=== PATIENT | male | born 1955 | race Caucasian/White ===

== ENCOUNTER 2019-03-21 05:48 | Outpatient (RCR) | payer OTHER, SELFPAY ==
--- NOTE | 2019-02-26 | CT_ITS ---
Radation Therapy Planning CT images; total exam DLP: 1150.40 mGy-cm MTDD
--- NOTE | 2019-03-07 13:02 | ONCRAD TMN_ITS ---
Radiation Oncology Weekly Treatment Management Patient: Ren Salamanca MR#: [id number] : 1955> Age: 63> Sex: Male Dictated by: Dr. Jevon Camarillo Date of Service: 03/05/2019 Referring Physician(s) : Primary Diagnosis: C61 - Malignant neoplasm of prostate, Diagnosed 05/07/2018 (Active) Radiotherapy to date: Course: Prostate 2019, Treatment Site: Prostate 45Gy, Ref. ID: [id number], Energy: 15X/6X, Dose/Fx (cGy): 180, #Fx: , Dose Correction (cGy): 0, Total Dose (cGy): 180, Start Date: 03/05/2019, Elapsed Days: 0 Current Complaints/Interval History: Constitutional Complains of moderate fatigue. Complains of night sweats along with hot flashes. Denies lack of appetite and fever. Gastrointestinal Denies constipation and diarrhea. No rectal bleeding or irritation Genitourinary (M) Complains of nocturia gets up about 3 to 5 times per night. Denies dysuria, frequency and urgency. Current Medications: AmLODIPine Besylate, aspirin, atorvastatin Calcium, chlorthalidone, clopidogrel Bisulfate, escitalopram Oxalate, lantus, losartan Potassium, metoprolol Succinate ER, novoLOG, pantoprazole Sodium, stool Softener, tamsulosin HCl. Allergies: Welchol, Szxgjok-Vxmkg-Exzlgnw-Varicell, Omeprazole and Rosuvastatin Calcium. Vital Signs: Performed on 03/05/2019 11:05 AM BMI - 33.375 kg/m2 (high), Height - 69.00 in, Weight - 226.0 lbs, Temperature - 97.3 f, Pulse - 72, Respiration - 18, O2 Sat - 97 %, Pain - 5 and BP - 113/ 68 mm(hg). Physical Exam: Appears stable, no skin erythema or desquamation. Performance Status: 0 - Fully active, able to carry on all predisease activities without restrictions. (ECOG) Lab: None pending in Radiation Oncology. Imaging: No new diagnostic imaging was performed since the last weekly treatment visit. All radiation therapy related imaging (including but not limited to CBCT generated images) was reviewed. Appropriate changes, if any, were made to assure accurate target localization. Impression/Plan: Started RT today. Doing well. Continue treatment as planned. CPT: 95201 Signed by: Dr. Jevon Camarillo>03/07/2019 1:00:30 PM <<Signature on File>>
--- NOTE | 2019-03-11 17:49 | ONCRAD TMN_ITS ---
Radiation Oncology Weekly Treatment Management Patient: Ren Salamanca MR#: [id number] : 1955> Age: 63> Sex: Male Dictated by: Dr. Jevon Camarillo Date of Service: 03/11/2019 Referring Physician(s) : Primary Diagnosis: C61 - Malignant neoplasm of prostate, Diagnosed 05/07/2018 (Active) Radiotherapy to date: Course: 2019 Treatment Site: Prostate 45Gy, Ref. ID: [id number], Energy: 15X/6X, Dose/Fx (cGy): 180, Fx: , Dose Correction (cGy): 0, Total Dose (cGy): 900, Start Date: 03/05/2019, End Date: 03/11/2019, Elapsed Days: 6 Current Complaints/Interval History: Constitutional Complains of mild fatigue. Complains of night sweats. Denies lack of appetite and fever. Gastrointestinal Complains of occasional constipation. Denies diarrhea. No rectal bleeding or irritation Genitourinary (M) Complains of nocturia gets up frequently. Denies dysuria, frequency and urgency. Current Medications: AmLODIPine Besylate, aspirin, atorvastatin Calcium, chlorthalidone, clopidogrel Bisulfate, escitalopram Oxalate, lantus, losartan Potassium, metoprolol Succinate ER, novoLOG, pantoprazole Sodium, stool Softener, tamsulosin HCl. Allergies: Welchol, Iuldkjp-Eltcc-Ustrxxc-Varicell, Omeprazole and Rosuvastatin Calcium. Vital Signs: Performed on 03/11/2019 3:02 PM BMI - 34.704 kg/m2 (high), Height - 69.00 in, Weight - 235.0 lbs, Temperature - 97.4 f, Pulse - 65, Respiration - 18, O2 Sat - 96 %, Pain - 0 and BP - 111/ 59 mm(hg)(/low). Physical Exam: Appears stable, no skin erythema or desquamation. Performance Status: 0 - Fully active, able to carry on all predisease activities without restrictions. (ECOG) Lab: None pending in Radiation Oncology. Imaging: No new diagnostic imaging was performed since the last weekly treatment visit. All radiation therapy related imaging (including but not limited to CBCT generated images) was reviewed. Appropriate changes, if any, were made to assure accurate target localization. Impression/Plan: Tolerating treatment well. Continue treatment as planned. CPT: 61954 Signed by: Dr. Jevon Camarillo>03/11/2019 5:47:23 PM <<Signature on File>>
--- NOTE | 2019-03-19 12:55 | ONCRAD TMN_ITS ---
Radiation Oncology Weekly Treatment Management Patient: Ren Salamanca MR#: [id number] : 1955 Age: 63 Sex: Male Dictated by: Dr. Jevon Camarillo Date of Service: 03/19/2019 Referring Physician(s) : Primary Diagnosis: C61 - Malignant neoplasm of prostate, Diagnosed 05/07/2018 (Active) Radiotherapy to date: Course: Prostate 2019, Treatment Site: Prostate 45Gy, Ref. ID: [id number], Energy: 15X/6X, Dose/Fx (cGy): 180, #Fx: , Dose Correction (cGy): 0, Total Dose (cGy): 1,980, Start Date: 03/05/2019, Elapsed Days: 14 Current Complaints/Interval History: Constitutional Complains of moderate fatigue and occasional night sweats. Denies lack of appetite and fever. Gastrointestinal Denies constipation and diarrhea. Has history of hemorrhoids and had rectal bleeding yesterday. No rectal irritation Genitourinary (M) Complains of nocturia gets up about 3 to 4 times per night. Denies dysuria, frequency and urgency. Current Medications: AmLODIPine Besylate, aspirin, atorvastatin Calcium, chlorthalidone, clopidogrel Bisulfate, escitalopram Oxalate, lantus, losartan Potassium, metoprolol Succinate ER, novoLOG, pantoprazole Sodium, stool Softener, tamsulosin HCl. Allergies: Welchol, Zfnefty-Huddn-Ivzqvse-Varicell, Omeprazole and Rosuvastatin Calcium. Vital Signs: Performed on 03/19/2019 10:48 AM BMI - 34.733 kg/m2 (high), Height - 69.00 in, Weight - 235.2 lbs, Temperature - 97.4 f, Pulse - 68, Respiration - 18, O2 Sat - 96 %, Pain - 0 and BP - 140/ 68 mm(hg). Physical Exam: Appears stable, no skin erythema or desquamation. Performance Status: 0 - Fully active, able to carry on all predisease activities without restrictions. (ECOG) Lab: None pending in Radiation Oncology. Imaging: No new diagnostic imaging was performed since the last weekly treatment visit. All radiation therapy related imaging (including but not limited to CBCT generated images) was reviewed. Appropriate changes, if any, were made to assure accurate target localization. Impression/Plan: Tolerating treatment well with expected side effects. Continue treatment as planned. Preparation H for hemorrhoid flareup. CPT: 20979 Signed by: Dr. Jevon Camarillo>03/19/2019 12:54:37 PM <<Signature on File>>
== END 2019-03-21 23:59 | disposition home or self-care (01) ==
LOC: ONCMED 05:48
PROVIDERS: Family Provider Internal Medicine; PCP Internal Medicine; Visit Provider Radiology Radiation Oncology
DX: Z51.0 Encounter for antineoplastic radiation therapy (principal); C61 Malignant neoplasm of prostate; Z79.818 Long term (current) use of other agents affecting estrogen receptors and estrogen levels
CPT/HCPCS: 77263; 77280; 77290; 77300; 77301; 77334; 77336; 77338; 77385; 77427; Q9967

== ENCOUNTER 2019-04-18 05:43 | Outpatient (RCR) | payer OTHER, SELFPAY ==
--- NOTE | 2019-03-25 11:58 | ONCRAD TMN_ITS ---
Radiation Oncology Weekly Treatment Management Patient: Ren Salamanca MR#: [id number] : 1955> Age: 63> Sex: Male Dictated by: Dr. Jevon Camarillo Date of Service: 03/25/2019 Referring Physician(s) : Primary Diagnosis: C61 - Malignant neoplasm of prostate, Diagnosed 05/07/2018 (Active) Radiotherapy to date: Course: Prostate 2019, Treatment Site: Prostate 45Gy, Ref. ID: [id number], Energy: 15X/6X, Dose/Fx (cGy): 180, #Fx: , Dose Correction (cGy): 0, Total Dose (cGy): 2,700, Start Date: 03/05/2019, Elapsed Days: 20 Current Complaints/Interval History: Constitutional Complains of moderate fatigue. Complains of night sweats which occur occasionally. Denies lack of appetite and fever. Gastrointestinal Complains of constipation. Denies diarrhea. Has rectal bleeding anal irritation related to hemorrhoids Genitourinary (M) Complains of nocturia has to get up 5 to 6 times per night and urgency occasionally. Denies dysuria and frequency. Current Medications: AmLODIPine Besylate, aspirin, atorvastatin Calcium, chlorthalidone, clopidogrel Bisulfate, escitalopram Oxalate, lantus, losartan Potassium, metoprolol Succinate ER, novoLOG, pantoprazole Sodium, stool Softener, tamsulosin HCl. Allergies: Welchol, Wvllxby-Cihhq-Pzgsezf-Varicell, Omeprazole and Rosuvastatin Calcium. Vital Signs: Performed on 03/25/2019 10:47 AM BMI - 34.733 kg/m2 (high), Height - 69.00 in, Weight - 235.2 lbs, Temperature - 97.3 f, Pulse - 81, Respiration - 20, O2 Sat - 96 %, Pain - 0 and BP - 147/ 67 mm(hg)(high/). Physical Exam: Appears stable, no skin erythema or desquamation. Performance Status: 0 - Fully active, able to carry on all predisease activities without restrictions. (ECOG) Lab: None pending in Radiation Oncology. Imaging: No new diagnostic imaging was performed since the last weekly treatment visit. All radiation therapy related imaging (including but not limited to CBCT generated images) was reviewed. Appropriate changes, if any, were made to assure accurate target localization. Impression/Plan: Tolerating treatment well with expected side effects. Continue treatment as planned. Continue preparation H ointment for hemorrhoid flareup CPT: 78492 Signed by: Dr. Jevon Camarillo>03/25/2019 11:56:24 AM <<Signature on File>>
--- NOTE | 2019-04-01 11:59 | ONCRAD TMN_ITS ---
Radiation Oncology Weekly Treatment Management Patient: Ren Salamanca MR#: [id number] : 1955> Age: 63> Sex: Male Dictated by: Dr. Jevon Camarillo Date of Service: 04/01/2019 Referring Physician(s) : Primary Diagnosis: C61 - Malignant neoplasm of prostate, Diagnosed 05/07/2018 (Active) Radiotherapy to date: Course: Prostate 2019, Treatment Site: Prostate 45Gy, Ref. ID: [id number], Energy: 15X/6X, Dose/Fx (cGy): 180, #Fx: 20 / , Dose Correction (cGy): 0, Total Dose (cGy): 3,600, Start Date: 03/05/2019, Elapsed Days: 27 Current Complaints/Interval History: Constitutional Complains of moderate fatigue. Denies lack of appetite, fever, night sweats and change in weight. Gastrointestinal Complains of intermittent constipation. Denies diarrhea. No rectal bleeding or irritation Genitourinary (M) Complains of nocturia gets up about 3 to 4 times per night. Denies dysuria, frequency and urgency. Current Medications: AmLODIPine Besylate, aspirin, atorvastatin Calcium, chlorthalidone, clopidogrel Bisulfate, escitalopram Oxalate, lantus, losartan Potassium, metoprolol Succinate ER, novoLOG, pantoprazole Sodium, stool Softener, tamsulosin HCl. Allergies: Welchol, Nggdadv-Aaebk-Jjowxsw-Varicell, Omeprazole and Rosuvastatin Calcium. Vital Signs: Performed on 04/01/2019 10:48 AM BMI - 34.704 kg/m2 (high), Height - 69.00 in, Weight - 235.0 lbs, Temperature - 97.5 f, Pulse - 70, Respiration - 18, O2 Sat - 96 %, Pain - 0 and BP - 154/ 84 mm(hg)(high/). Physical Exam: Appears stable, no skin erythema or desquamation. Performance Status: 1 - No physically strenuous activity, but ambulatory and able to carry out light or sedentary work (e.g. office work, light house work). (ECOG) Lab: None pending in Radiation Oncology. Imaging: No new diagnostic imaging was performed since the last weekly treatment visit. All radiation therapy related imaging (including but not limited to CBCT generated images) was reviewed. Appropriate changes, if any, were made to assure accurate target localization. Impression/Plan: Tolerating treatment well with expected side effects. Continue treatment as planned. CPT: 01007 Signed by: Dr. Jevon Camarillo>04/01/2019 11:58:38 AM <<Signature on File>>
--- NOTE | 2019-04-08 11:04 | ONCRAD TMN_ITS ---
Radiation Oncology Weekly Treatment Management Patient: Ren Salamanca MR#: [id number] : 1955> Age: 63> Sex: Male Dictated by: Dr. Jevon Camarillo Date of Service: 04/08/2019 Referring Physician(s) : Primary Diagnosis: C61 - Malignant neoplasm of prostate, Diagnosed 05/07/2018 (Active) Radiotherapy to date: Course: Prostate 2019, Treatment Site: Prostate 45Gy, Ref. ID: [id number], Energy: 15X/6X, Dose/Fx (cGy): 180, #Fx: , Dose Correction (cGy): 0, Total Dose (cGy): 4,140, Start Date: 03/05/2019, Elapsed Days: 34 Current Complaints/Interval History: Constitutional Complains of moderate fatigue. Denies lack of appetite and night sweats. Gastrointestinal Complains of intermittent constipation. Denies diarrhea. No rectal bleeding or irritation Genitourinary (M) Complains of occasional mild dysuria and nocturia gets up about 2 to 3 times per night. Denies frequency and urgency. Current Medications: AmLODIPine Besylate, aspirin, atorvastatin Calcium, chlorthalidone, clopidogrel Bisulfate, escitalopram Oxalate, lantus, losartan Potassium, metoprolol Succinate ER, novoLOG, pantoprazole Sodium, stool Softener, tamsulosin HCl. Allergies: Welchol, Fzafjej-Aacqk-Klamofa-Varicell, Omeprazole and Rosuvastatin Calcium. Vital Signs: Performed on 04/08/2019 10:46 AM BMI - 34.763 kg/m2 (high), Height - 69.00 in, Weight - 235.4 lbs, Temperature - 97.2 f, Pulse - 65, Respiration - 18, O2 Sat - 98 %, Pain - 0 and BP - 135/ 71 mm(hg). Physical Exam: Appears stable, no skin erythema or desquamation. Performance Status: 1 - No physically strenuous activity, but ambulatory and able to carry out light or sedentary work (e.g. office work, light house work). (ECOG) Lab: None pending in Radiation Oncology. Imaging: No new diagnostic imaging was performed since the last weekly treatment visit. All radiation therapy related imaging (including but not limited to CBCT generated images) was reviewed. Appropriate changes, if any, were made to assure accurate target localization. Impression/Plan: Tolerating treatment well with expected side effects. Continue treatment as planned. CPT: 22936 Signed by: Dr. Jevon Camarillo>04/08/2019 11:03:04 AM <<Signature on File>>
--- NOTE | 2019-04-16 11:22 | ONCRAD TMN_ITS ---
Radiation Oncology Weekly Treatment Management Patient: Ren Salamanca MR#: [id number] : 1955> Age: 63> Sex: Male Dictated by: Dr. Jevon Camarillo Date of Service: 04/16/2019 Referring Physician(s) : Primary Diagnosis: C61 - Malignant neoplasm of prostate, Diagnosed 05/07/2018 (Active) Radiotherapy to date: Course: Prostate 2019, Treatment Site: Prostate 45Gy, Ref. ID: [id number], Energy: 15X/6X, Dose/Fx (cGy): 180, #Fx: 25 / 25, Dose Correction (cGy): 0, Total Dose (cGy): 4,500, Start Date: 03/05/2019, End Date: 04/10/2019, Elapsed Days: 36 Prostate 2019, Treatment Site: Prostate 55Gy, Ref. ID: [id number], Energy: 15X/6X, Dose/Fx (cGy): 200, #Fx: 4 / 5, Dose Correction (cGy): 0, Total Dose (cGy): 800, Start Date: 04/11/2019, Elapsed Days: 5 Current Complaints/Interval History: Constitutional Complains of moderate fatigue. Denies lack of appetite, fever and night sweats. Gastrointestinal Denies constipation and diarrhea. Has no rectal bleeding but has anal irritation Genitourinary (M) Complains of dysuria and has a hard time starting the urine flow and has a weak urinary stream. Complains of nocturia more than 4 times/night. Denies frequency and urgency. Current Medications: AmLODIPine Besylate, aspirin, atorvastatin Calcium, chlorthalidone, clopidogrel Bisulfate, escitalopram Oxalate, lantus, losartan Potassium, metoprolol Succinate ER, novoLOG, pantoprazole Sodium, stool Softener, tamsulosin HCl. Allergies: Welchol, Imesccd-Vzfdn-Tqcrdlr-Varicell, Omeprazole and Rosuvastatin Calcium. Vital Signs: Performed on 04/16/2019 10:31 AM BMI - 34.32 kg/m2 (high), Height - 69.00 in, Weight - 232.4 lbs, Temperature - 96.9 f, Pulse - 68, Respiration - 18, O2 Sat - 99 %, Pain - 0 and BP - 152/ 71 mm(hg)(high/). Physical Exam: Appears stable, no skin erythema or desquamation. Performance Status: 1 - No physically strenuous activity, but ambulatory and able to carry out light or sedentary work (e.g. office work, light house work). (ECOG) Lab: None pending in Radiation Oncology. Imaging: No new diagnostic imaging was performed since the last weekly treatment visit. All radiation therapy related imaging (including but not limited to CBCT generated images) was reviewed. Appropriate changes, if any, were made to assure accurate target localization. Impression/Plan: Tolerating treatment well with expected side effects. Continue treatment as planned. Continue tamsulosin. Recommended preparation H for anal irritation. CPT: 73261 Signed by: Dr. Jevon Camarillo>04/16/2019 11:21:24 AM <<Signature on File>>
== END 2019-04-19 23:59 | disposition home or self-care (01) ==
LOC: ONCMED 05:43
PROVIDERS: Family Provider Internal Medicine; PCP Internal Medicine; Visit Provider Radiology Radiation Oncology
DX: Z51.0 Encounter for antineoplastic radiation therapy (principal); C61 Malignant neoplasm of prostate; K62.89 Other specified diseases of anus and rectum
CPT/HCPCS: 77280; 77300; 77336; 77338; 77385; 77412

== ENCOUNTER 2019-05-05 15:43 | Emergency (ER) | payer OTHER, SELFPAY ==
[2019-05-05 16:10] VITALS: BP 144/66; PULSE 73; RESP 16; TEMP 36.9; O2SAT 95; BMI 33.5
--- NOTE | 2019-05-05 16:23 | XR_ITS ---
WS: [id number] XR chest 1V portable [id number] REASON FOR EXAM: cough/congestion FINDINGS: Slight increased peribronchial markings bilaterally no definite pneumonia. Lung roach are mildly hyper aerated. There is arteriosclerotic changes. XR/XR chest 1V portable [id number] IMPRESSION: Findings consistent with bronchitis.
[2019-05-05 17:27] LABS: Basophils % 0.7 %; Eosinophils # 0.5 10^3/uL (0.0-0.8); Eosinophils % 11.1 %; Hemoglobin 10.9 g/dL (11.7-16.6); Lymphocytes # 0.5 10^3/uL (0.8-4.8); Lymphocytes % 11.1 %; Mean Corpuscular HGB Conc 35.2 g/dL (30.0-36.0); Mean Corpuscular Hemoglobin 31.6 pg (28.0-34.0); Mean Corpuscular Volume 89.9 fL (80-94); Monocytes # 0.4 10^3/uL (0.2-0.9); Monocytes % 8.5 %; Neutrophils # 3.1 10^3/uL (1.8-7.7); Neutrophils % 68.6 %; Nucleated Red Blood Cells % 0 %; Platelet Count 134 10^3/cmm (130-400); Red Blood Count 3.45 10^6/uL (4.1-5.3); Red Cell Distribution Width 12.8 % (12.1-15.1); White Blood Count 4.5 10^3/uL (4.0-10.0)
[2019-05-05 17:43] LABS: Alanine Aminotransferase 25 U/L (0-41); Albumin Level 4.3 g/dL (3.5-5.2); Alkaline Phosphatase 78 IU/L (40-130); Anion Gap 14.3 (5-19); Aspartate Amino Transferase 19 U/L (0-40); Blood Urea Nitrogen 28 mg/dL (8-23); Calcium 10.6 mg/dL (8.5-10.5); Carbon Dioxide 31 mmol/L (22-29); Chloride 96 mmol/L (98-107); Glomerular Filtration Rate 47.4 mL/min (90-130); Glucose 254 mg/dL (65-115); Osmolality Calculated 290 mOsm/kg (285-295); Potassium 4.3 mmol/L (3.5-5.1); Sodium 137 mmol/L (136-145); Total Bilirubin 0.3 mg/dL (0.15-1.2); Total Protein 7.3 g/dL (6.6-8.7)
--- NOTE | 2019-05-05 18:04 | ED_ITS ---
Entered by Indu Fajardo, acting as scribe for Zhao Fajardo DO May 05, 2019 15:43 HPI - SOB/Dyspnea General: Chief Complaint: Shortness of Breath/Dyspnea Stated Complaint: SOB Time Seen by Provider: 05/05/19 18:31 Source: patient and family Mode of arrival: ambulatory Limitations: no limitations History of Present Illness: HPI Narrative: 63 yo male presents with increased shortness of breath. pt states this started 1 week ago. pt states he is a cancer pt and was concerned about respiratory issues. pt states he was seen at pcp clinic and they gave him antibiotics and inhaler. pt states he was [facility] ED [facility]. MD elicited complaint: shortness of breath Onset (ago): week(s) (1 week) Context: recent illness Timing: constant Severity: mild Exacerbating factors: deep breaths Relieving factors: nothing Associated symptoms: Deny abdominal pain, chest pain, fever(s), nausea or vomiting Treatment prior to arrival: other (antibotics, inhaler) Related Data: Home oxygen amount: none Review of Systems Const: Denies: fever, chills, body aches, change in appetite, fatigue or malaise ENMT: Denies: throat pain, ear pain, nasal discharge or nasal congestion Card: Denies: chest pain or edema GI: Denies: abdominal pain, nausea, vomiting, vomiting blood, coffee grounds in vomit, diarrhea, constipation, bloating, blood in stool or black tarry stool : Denies: flank pain, painful urination, urinary frequency or urinary urgency Skin/Breast: Denies: rash or itching PFS ED PFSH: Medical History (Updated 05/05/19 @ 19:47 by Zhao Fajardo DO) History of prostate cancer Social History Smoking and tobacco status: former smoker Physical Exam Const: COMMON NORMALS: no apparent distress GENERAL APPEARANCE: cooperative and comfortable ORIENTATION/CONSCIOUSNESS: Yes awake, Yes oriented to person, Yes oriented to place and Yes oriented to time HENMT: COMMON NORMALS: normocephalic, head/scalp atraumatic, hearing grossly normal bilaterally, external ears normal, EAC's normal, TM's normal bilaterally, nasal mucous membranes and turbinates normal, moist oral mucous membranes and oropharynx normal HEAD & SCALP: normocephalic and atraumatic NOSE: nasal mucous membranes and turbinates normal EXTERNAL EAR: Yes external ears normal EXTERNAL AUDITORY CANAL: EAC's normal TYMPANIC MEMBRANE: TM's normal bilaterally Eye: COMMON NORMALS: PERRL, EOMs intact bilaterally, conjunctivae normal and no scleral icterus CONJUNCTIVA: Yes conjunctivae normal PUPIL: Yes PERRL Neck/C-Spine: COMMON NORMALS: full ROM, no lymphadenopathy, supple and no JVD Lymph: LYMPHATIC: no lymphadenopathy noted and no lymphedema noted Resp: COMMON NORMALS: normal respiratory effort, no retractions, no use of accessory muscles and clear to auscultation bilaterally AUSCULTATION: clear to auscultation bilaterally Cardio: COMMON NORMALS: no JVD, regular rate, regular rhythm and no murmurs RATE: regular rate RHYTHM: regular rhythm GI: COMMON NORMALS: soft to palpation and no hepatosplenomegaly AUSCULTATION: Yes normoactive bowel sounds PALPATION: Yes soft, No tender, No guarding and Yes no hepatosplenomegaly Extremity: COMMON NORMALS: normal to inspection, normal capillary refill, no clubbing, cyanosis or edema, no calf tenderness and no pedal edema Neuro: SENSORIUM/ORIENTATION: Yes oriented to person, Yes oriented to place and Yes oriented to time Skin: COMMON NORMALS: no rashes or lesions noted GENERAL SKIN EXAM: no rashes or lesions noted Course ED course: White count normal flu swabs are normal chest x-ray shows no acute infiltrates. We will go ahead and treat him with a Medrol Dosepak have him use duo nebs instead of plain albuterol follow-up with his primary care doctor return if worsens or changes Vital Signs: Vital signs: Vital Signs Temperature 98.5 F 05/05/19 16:10 Pulse Rate 75 05/05/19 20:33 Respiratory Rate 18 05/05/19 20:33 Blood Pressure 169/82 05/05/19 20:33 Pulse Oximetry 95 05/05/19 20:33 MDM - SOB/Dyspnea Lab Data: Labs: Lab Results 05/05/19 05/05/19 05/05/19 Range/Units 17:10 17:10 18:21 WBC 4.5 (4.0-10.0) 10^3/ uL RBC 3.45 L (4.1-5.3) 10^6/u L Hgb 10.9 L (11.7-16.6) g/dL Hct 31.0 L (42.0-52.0) % MCV 89.9 (80-94) fL MCH 31.6 (28.0-34.0) pg MCHC 35.2 (30.0-36.0) g/dL RDW 12.8 (12.1-15.1) % Plt Count 134 (130-400) 10^3/c mm MPV 12.0 H (7.4-10.4) fL Neut % (Auto) 68.6 % Lymph % (Auto) 11.1 % [place] % (Auto) 8.5 % Eos % (Auto) 11.1 % Baso % (Auto) 0.7 % Neut # (Auto) 3.1 (1.8-7.7) 10^3/u L Lymph # (Auto) 0.5 L (0.8-4.8) 10^3/u L [place] # (Auto) 0.4 (0.2-0.9) 10^3/u L Eos # (Auto) 0.5 (0.0-0.8) 10^3/u L Baso # (Auto) 0.0 (0.0-0.1) 10^3/u L Nucleated RBC % (a uto) 0 % Nucleated RBCs # 0.0 /100WBC Sodium 137 (136-145) mmol/L Potassium 4.3 (3.5-5.1) mmol/L Chloride 96 L (98-107) mmol/L Carbon Dioxide 31 H (22-29) mmol/L Anion Gap 14.3 (5-19) BUN 28 H (8-23) mg/dL Creatinine 1.5 H (0.7-1.2) mg/dL GFR Calculation 47.4 L (90-130) mL/min Glucose 254 H (65-115) mg/dL Calculated Osmolal ity 290 (285-295) mOsm/k g Calcium 10.6 H (8.5-10.5) mg/dL Total Bilirubin 0.3 (0.15-1.2) mg/dL AST 19 (0-40) U/L ALT 25 (0-41) U/L Alkaline Phosphata se 78 (40-130) IU/L Total Protein 7.3 (6.6-8.7) g/dL Albumin 4.3 (3.5-5.2) g/dL Globulin 3.0 (1.3-4.6) g/dL Influenza Type A A g Negative (Negative) POC Influenza B Ag Negative (Negative) Discharge Plan Discharge Patient Disposition: Home, Self-Care Clinical Impression: Acute exacerbation of chronic obstructive airways disease Condition: Stable Prescriptions: New Medrol (Darío) 4 mg tablets,dose pack See Rx Instructions .ROUTE .COMPLEX Qty: 21 RF: 0 ipratropium-albuterol 0.5 mg-3 mg(2.5 mg base)/3 mL solution for nebulization 3 ml INHALATION Q6H PRN (Reason: shortness of breath or wheezing) Qty: 180 RF: 0 No Action atorvastatin 40 mg Tablet 40 mg PO DAILY RF: 0 metoprolol succinate 50 mg Tablet Extended Release 24 Hr 50 mg PO DAILY RF: 0 Plavix 75 mg Tablet 75 mg PO DAILY RF: 0 chlorthalidone 50 mg Tablet 50 mg PO DAILY RF: 0 Aspir-81 81 mg Tablet,Delayed Release (Dr/Ec) 81 mg PO DAILY RF: 0 tamsulosin 0.4 mg Capsule 0.4 mg PO DAILY RF: 0 amlodipine 10 mg Tablet 10 mg PO DAILY RF: 0 Novolog U-100 Insulin aspart 100 unit/mL Solution 15 unit SUBCUT TID RF: 0 pantoprazole 40 mg tablet,delayed release (DR/EC) 40 mg PO BID RF: 0 ranitidine HCl 150 mg Tablet 150 mg PO BID RF: 0 ProAir HFA 90 mcg/actuation Hfa Aerosol Inhaler 1 inh INHALATION QID PRN (Reason: Shortness Of Breath) RF: 0 losartan 100 mg Tablet 100 mg PO DAILY RF: 0 escitalopram oxalate 20 mg Tablet See Rx Instructions .ROUTE .COMPLEX RF: 0 Symbicort 80-4.5 mcg/actuation HFA aerosol inhaler 2 puff INHALATION BID RF: 0 omeprazole 20 mg Tablet,Delayed Release (Dr/Ec) 20 mg PO DAILY RF: 0 Lantus U-100 Insulin 45 units SUBCUT BID RF: 0 Discharge Orders: Discharge Order (Routine); Ordered 05/05/19 Ordered By: Zhao Fajardo Referrals: Daren Beasley [Primary Care Provider] - Discharge Diet: Usual diet Discharge Activity: Increase activity as tolerated Activity Restrictions/Additional Instructions: Add metaxalone take 5 mg 30 minutes before your Lasix dose in the morning. Do this for no more than 3 days and follow-up with Dr. Hayes Discharge Date/Time: 05/05/19 20:34 Coding Level of Care Code ED [employer] Adviser for Chg Fwd Exam Comprehensive The documentation recorded by the Scotty pepper Bridget Annette, accurately reflects the service I personally performed and the decisions made by , Zhao Fajardo, May 05, 2019 15:43
[2019-05-05 18:58] LABS: Influenza A by IFA Negative (Negative); Influenza B by IFA Negative (Negative)
[2019-05-05 19:26] VITALS: BP 142/74; PULSE 69; RESP 18; O2SAT 96
[2019-05-05 20:33] VITALS: BP 169/82; PULSE 75; RESP 18; O2SAT 95
== END 2019-05-05 20:34 | disposition home or self-care (01) ==
PROVIDERS: Physician Assistant; Emergency Provider Family Medicine; Family Provider Internal Medicine; PCP Internal Medicine
DX: J44.1 Chronic obstructive pulmonary disease with (acute) exacerbation (principal); Z87.891 Personal history of nicotine dependence; Z85.46 Personal history of malignant neoplasm of prostate
CPT/HCPCS: 12345; 36415; 71045; 80053; 85025; 87804; 96372; 99281; 99283; J2930

== ENCOUNTER 2019-05-06 05:48 | Outpatient (RCR) | payer OTHER, SELFPAY ==
--- NOTE | 2019-04-21 11:44 | ONCRAD TMN_ITS ---
Radiation Oncology Weekly Treatment Management Patient: Ren Salamanca MR#: [id number] : 1955 Age: 63 Sex: Male Dictated by: Dr. Jevon Camarillo Date of Service: 04/21/2019 Referring Physician(s) : Primary Diagnosis: C61 - Malignant neoplasm of prostate, Diagnosed 05/07/2018 (Active) Radiotherapy to date: Course: Prostate 2019, Treatment Site: Prostate 45Gy, Ref. ID: [id number], Energy: 15X/6X, Dose/Fx (cGy): 180, #Fx: 25 / 25, Dose Correction (cGy): 0, Total Dose (cGy): 4,500, Start Date: 03/05/2019, End Date: 04/10/2019, Elapsed Days: 36 Course: Prostate 2019, Treatment Site: Prostate 55Gy, Ref. ID: [id number], Energy: 15X/6X, Dose/Fx (cGy): 200, #Fx: 5 / 5, Dose Correction (cGy): 0, Total Dose (cGy): 1,000, Start Date: 04/11/2019, End Date: 04/17/2019, Elapsed Days: 6 Course: Prostate 2019, Treatment Site: Prostate 81Gy, Ref. ID: [id number], Energy: 15X/6X, Dose/Fx (cGy): 200, #Fx: 2 / 13, Dose Correction (cGy): 0, Total Dose (cGy): 400, Start Date: 04/18/2019, Elapsed Days: 3 Current Complaints/Interval History: Constitutional Complains of severe fatigue. Denies lack of appetite, fever, night sweats and change in weight. Gastrointestinal Complains of constipation and rectal bleeding but denies rectal irritation. The patient has a history of hemorrhoids bleeding. Genitourinary (M) Complains of nocturia in which he gets up 3 to 4 times per night. Denies dysuria, frequency and urgency. Current Medications: AmLODIPine Besylate, aspirin, atorvastatin Calcium, chlorthalidone, clopidogrel Bisulfate, escitalopram Oxalate, lantus, losartan Potassium, metoprolol Succinate ER, novoLOG, pantoprazole Sodium, stool Softener, tamsulosin HCl. Allergies: Welchol, Jodvsns-Dzxlu-Deihess-Varicell, Omeprazole and Rosuvastatin Calcium. Vital Signs: Performed on 04/21/2019 10:37 AM BMI - 34.32 kg/m2 (high), Height - 69.00 in, Weight - 232.4 lbs, Temperature - 97.5 f, Pulse - 66, Respiration - 18, O2 Sat - 97 %, Pain - 0 and BP - 149/ 80 mm(hg)(high/). Physical Exam: Appears stable, no skin erythema or desquamation. Performance Status: 1 - No physically strenuous activity, but ambulatory and able to carry out light or sedentary work (e.g. office work, light house work). (ECOG) Lab: None pending in Radiation Oncology. Imaging: No new diagnostic imaging was performed since the last weekly treatment visit. All radiation therapy related imaging (including but not limited to CBCT generated images) was reviewed. Appropriate changes, if any, were made to assure accurate target localization. Impression/Plan: Tolerating treatment well with expected side effects. Continue treatment as planned. Apply preparation H to hemorrhoid. Recommend moderate exercise for fatigue. CPT: 15582 Signed by: Dr. Jevon Camarillo>04/21/2019 11:42:22 AM <<Signature on File>>
--- NOTE | 2019-04-30 13:19 | ONCRAD TMN_ITS ---
Radiation Oncology Weekly Treatment Management Patient: Ren Salamanca MR#: [id number] : 1955> Age: 63> Sex: Male Dictated by: Dr. Hernan Chatman Date of Service: 04/30/2019 Referring Physician(s) : Primary Diagnosis: C61 - Malignant neoplasm of prostate, Diagnosed 05/07/2018 (Active) Radiotherapy to date: Course: Prostate 2019, Treatment Site: Prostate 45Gy, Ref. ID: [id number], Energy: 15X/6X, Dose/Fx (cGy): 180, #Fx: 25 / 25, Dose Correction (cGy): 0, Total Dose (cGy): 4,500, Start Date: 03/05/2019, End Date: 04/10/2019, Elapsed Days: 36 Prostate 2019, Treatment Site: Prostate 55Gy, Ref. ID: [id number], Energy: 15X/6X, Dose/Fx (cGy): 200, #Fx: 5 / 5, Dose Correction (cGy): 0, Total Dose (cGy): 1,000, Start Date: 04/11/2019, End Date: 04/17/2019, Elapsed Days: 6 Prostate 2019, Treatment Site: Prostate 81Gy, Ref. ID: [id number], Energy: 15X/6X, Dose/Fx (cGy): 200, #Fx: 9 / 13, Dose Correction (cGy): 0, Total Dose (cGy): 1,800, Start Date: 04/18/2019, Elapsed Days: 12 Current Complaints/Interval History: Patien is experiencing moderate urinary urgency with incontinence, increased urinary frequency and nocturia. He didn???t think he needed any medication at this time. Current Medications: AmLODIPine Besylate, aspirin, atorvastatin Calcium, chlorthalidone, clopidogrel Bisulfate, escitalopram Oxalate, lantus, losartan Potassium, metoprolol Succinate ER, novoLOG, pantoprazole Sodium, stool Softener, tamsulosin HCl. Allergies: Welchol, Lnfbsce-Gnyhe-Wcfmqep-Varicell, Omeprazole and Rosuvastatin Calcium. Vital Signs: Performed on 04/30/2019 11:51 AM Weight - 234.8 lbs, Temperature - 97.7 f, Pulse - 65, Respiration - 16, O2 Sat - 99 %, Pain - 0, Fatigue - 8 and BP - 151/ 78 mm(hg)(high/). Physical Exam: Appears stable, no skin erythema or desquamation. Performance Status: 1 - No physically strenuous activity, but ambulatory and able to carry out light or sedentary work (e.g. office work, light house work). (ECOG) Lab: None pending in Radiation Oncology. Imaging: No new diagnostic imaging was performed since the last weekly treatment visit. All radiation therapy related imaging (including but not limited to kV, MV, and CBCT generated images) was reviewed. Appropriate changes, if any, were made to assure accurate target localization. Impression/Plan: Tolerating treatment well with expected moderate urinary side effects. Continue treatment as planned. CPT: 93788 Signed by: Dr. Hernan Chatman>04/30/2019 1:17:52 PM <<Signature on File>>
== END 2019-05-20 23:59 | disposition home or self-care (01) ==
LOC: ONCMED 05:48
PROVIDERS: Family Provider Internal Medicine; PCP Internal Medicine; Visit Provider Specialist
DX: Z51.0 Encounter for antineoplastic radiation therapy (principal); C61 Malignant neoplasm of prostate; K64.9 Unspecified hemorrhoids; Z79.899 Other long term (current) drug therapy
CPT/HCPCS: 77014; 77336; 77385; 77427

== ENCOUNTER 2019-06-17 14:10 | Outpatient (RCR) | payer OTHER, SELFPAY ==
[2019-06-17 17:30] LABS: Prostate Specific Antigen 0.22 ng/mL (0-4)
== END 2019-06-19 23:59 | disposition home or self-care (01) ==
LOC: ONCMED 14:10
PROVIDERS: Specialist; Family Provider Internal Medicine; PCP Internal Medicine; Visit Provider Radiology Radiation Oncology
DX: C61 Malignant neoplasm of prostate (principal)
CPT/HCPCS: 84153